=== PATIENT | male | born 1965 | race Caucasian/White ===

== ENCOUNTER 2019-04-23 04:28 | Emergency (ER) | payer OTHER ==
[~2019-04-23] VITALS: Ht 190.5 cm; Wt 93.0 kg
[~2019-04-23 04:28] MED LIST: ACYCLOVIR 800800 M1 PO; AKWA TEARS EYE15 ML OP; ASPIRIN325 OR; CEFTIN 250 MG250 MG PO; COREG6.25 MG PO; COZAAR 50 MG TA50 M1 PO; GLIPIZIDE-METF1 EAC1 PO; GLIPIZIDE-METF1 EAC2 PO; KEFLEX500 MG PO; LACTINEX CHEWA1 EACH PO; LANTUS100 UNIT/M SUBQ; LASIX 40 MG TAB40 M2 PO; LEVOBUNOLOL 0.5% OPHTHALMIC; LOW DOSE ASPIRI81 M1 PO; METFORMIN HCL500 MG PO; NORCO 5-325 TA1 EACH PO; NOVOLOG100 UNIT/1 SUBQ; ONGLYZA5 MG PO; PILOCARPINE 1%15 ML OPHTHALMIC; PREDNISONE 10 M10 M1 PO; PREDNISONE 5 MG5 M1 PO; PRINIVIL10 MG PO; PROAIR HFA8.5 GM INH; SPIRONOLACTONE25 M1 PO; TESSALON PERLE100 MG PO; TYLENOL325 MG PO; VYTORIN; VYTORIN 10-401 EACH PO; ZOCOR40 MG PO; [UNRECOGNIZED DRUG - OTHER] OR
[2019-04-23 04:29] VITALS: BP 142/69
[2019-04-23] MEDS ORDERED: GLIPIZIDE ER10 MG PO (05:12)
[2019-04-23] MEDS ORDERED: SPIRONOLACTONE25 MG PO (05:13)
[2019-04-23] MEDS ORDERED: TRAMADOL 50 MG50 MG PO (05:25)
[2019-04-23] MEDS ORDERED: NORFLEX100 MG PO ×2 (05:25→05:27)
[2019-04-23] MEDS ORDERED: IBUPROFEN 600600 M1 PO ×2 (05:25→05:27)
== END 2019-04-23 05:37 | disposition home or self-care (01) ==
LOC: ER 04:28
DX: S39.012A Strain of muscle, fascia and tendon of lower back, initial encounter (principal); E11.9 Type 2 diabetes mellitus without complications; Z98.890 Other specified postprocedural states; Z86.73 Personal history of transient ischemic attack (TIA), and cerebral infarction without residual deficits; Z96.641 Presence of right artificial hip joint; Z79.4 Long term (current) use of insulin; Z87.891 Personal history of nicotine dependence; X50.0XXA Overexertion from strenuous movement or load, initial encounter; Y92.89 Other specified places as the place of occurrence of the external cause; Y93.89 Activity, other specified; Y99.0 Civilian activity done for income or pay

== ENCOUNTER 2019-04-29 23:13 | Emergency (ER) | payer OTHER ==
[~2019-04-29] VITALS: Ht 190.5 cm; Wt 93.0 kg
[~2019-04-29 23:13] MED LIST changes: +GLIPIZIDE ER10 MG PO; +IBUPROFEN 600600 M1 PO; +NORFLEX100 MG PO; +SPIRONOLACTONE25 MG PO; +TRAMADOL 50 MG50 MG PO
[2019-04-30 00:48] LABS: ABSOLUTE NEUTROPHILS 5.4 thou/uL (1.4-8.2); BASOPHILS 0.9 % (0.0-2.0); EOSINOPHILS 2.6 % (0.0-3.0); HEMATOCRIT 38.9 % (42.0-52.0); HEMOGLOBIN 13.7 gm/dL (14.0-18.0); LYMPHOCYTES 18.2 % (24.0-44.0); MCH 30.6 pg (26.0-34.0); MCHC 35.2 g/dL (28.0-37.0); MCV 86.9 fL (80.0-100.0); MONOCYTES 6.2 % (1.0-8.0); PLATELET COUNT 195 thou/uL (150-400); POLYS 72.1 % (36.0-66.0); RBC 4.48 mil/uL (4.50-6.00); RDW 13.6 % (10.5-14.5); WBC 7.5 thou/uL (4.0-11.0)
[2019-04-30 00:57] LABS: CALCIUM 8.8 mg/dL (8.5-10.1); CREATININE 1.7 mg/dL (0.7-1.3)
[2019-04-30 01:03] LABS: ALBUMIN 3.7 g/dL (3.4-5.0); DIRECT BILIRUBIN 0.2 mg/dL (<0.1-0.3); TOTAL BILIRUBIN 0.8 mg/dL (<0.1-1.0); TOTAL PROTEIN 7.4 g/dL (6.4-8.2)
[2019-04-30 01:16] LABS: URINE BILIRUBIN NEGATIVE (Negative); URINE BLOOD NEGATIVE (Negative); URINE CLARITY CLEAR; URINE COLOR YELLOW; URINE GLUCOSE-RANDOM* NEGATIVE (Negative); URINE KETONES NEGATIVE (Negative); URINE LEUKOCYTES-REFLEX NEGATIVE (Negative); URINE NITRITE-REFLEX NEGATIVE (Negative); URINE PROTEIN (DIPSTICK) NEGATIVE (Negative); URINE SPECIFIC GRAVITY 1.015 (1.005-1.035)
[2019-04-30 02:59] VITALS: BP 151/70
== END 2019-04-30 03:00 | disposition home or self-care (01) ==
LOC: ER 23:13
PROVIDERS: Emergency Medicine
DX: N17.9 Acute kidney failure, unspecified (principal); E86.0 Dehydration; I95.1 Orthostatic hypotension; E11.9 Type 2 diabetes mellitus without complications; Z96.641 Presence of right artificial hip joint; Z87.891 Personal history of nicotine dependence

== ENCOUNTER → 2019-09-20 | Outpatient (CLI) | payer OTHER | LOC: SJCVCIMAG 12:04 | PROVIDERS: ATTEND Internal Medicine Cardiovascular Disease | DX: I27.20 Pulmonary hypertension, unspecified (principal); I25.10 Atherosclerotic heart disease of native coronary artery without angina pectoris; R07.9 Chest pain, unspecified; I42.8 Other cardiomyopathies; E11.8 Type 2 diabetes mellitus with unspecified complications; H91.90 Unspecified hearing loss, unspecified ear; I65.23 Occlusion and stenosis of bilateral carotid arteries; I10 Essential (primary) hypertension; Z79.4 Long term (current) use of insulin ==

== ENCOUNTER → 2019-11-02 | Outpatient (CLI) | payer OTHER | LOC: SJCVCIMAG 07:16 | DX: I25.10 Atherosclerotic heart disease of native coronary artery without angina pectoris (principal); I42.8 Other cardiomyopathies; E11.9 Type 2 diabetes mellitus without complications; Z79.899 Other long term (current) drug therapy; Z87.891 Personal history of nicotine dependence ==

== ENCOUNTER → 2019-11-20 | Outpatient (CLI) | payer OTHER ==
[~2019-11-20] VITALS: Ht 190.5 cm; Wt 90.7 kg
[2019-11-20 07:36] VITALS: BP 149/72
[2019-11-20 07:37] LABS: HEMATOCRIT 41.2 % (42.0-52.0); HEMOGLOBIN 14.2 gm/dL (14.0-18.0); MCH 30.3 pg (26.0-34.0); MCHC 34.4 g/dL (28.0-37.0); MCV 88.1 fL (80.0-100.0); RBC 4.68 mil/uL (4.50-6.00); RDW 13.6 % (10.5-14.5); WBC 7.5 thou/uL (4.0-11.0)
[2019-11-20 07:43] LABS: CALCIUM 9.4 mg/dL (8.5-10.1); CREATININE 1.5 mg/dL (0.7-1.3); POTASSIUM 4.2 mmol/L (3.5-5.1)
--- NOTE | 2019-11-20 07:58 | EKG ---
[facility] [place] [address] ELECTROCARDIOGRAM REPORT Name: JENNIFER MCKEON Room #: REG CL M.R.#: [id number] Admission: 11/20/19 Attend Phys: Miguel Link MD, Discharge: Date of : 63 Report #: [id number] THIS REPORT FOR: cc: Fidel Omalley MD, Kevin R. MD Lundgren,Des Guerrier MD [facility] ~ THIS REPORT FOR: //name// [facility] Test Date: 2019-11-20 Test Time: 07:26:43 Pat Name: JENNIFER MCKEON Department: Room: Gender: Material Planning Analyst: Ekaterina OLVERA : 1965 Requested By: Miguel Link Order Number: [id number] MD: Des Andrade Measurements Intervals [place] Rate: 79 P: 77 HI: 199 QRS: -23 QRSD: 97 T: 23 QT: 367 QTc: 421 Interpretive Statements Sinus rhythm Inferior infarct, old Probable anteroseptal infarct, old No previous ECGs available for comparison Electronically Signed On 11-20-2019 7:56:29 CDT by Des Andrade [email or web address] <ELECTRONICALLY SIGNED> By: Des Andrade MD, [facility] 11/20/19 0756 0726 0726 Des Andrade MD, [facility] /EPI
--- NOTE | 2019-11-20 17:19 | CATHLAB ---
[facility] [place] [address] INVASIVE PROCEDURE REPORT Name: JENNIFER MCKEON Room #: REG CANDI Cannon#: [id number] Admission: 11/20/19 Attend Phys: Miguel Link MD, Discharge: Date of : 63 Report #: [id number] THIS REPORT FOR: cc: Fidel Omalley MD, Kevin R. MD Mancuso, Gerald M. MD [facility] ~ APPROVED REPORT Study performed: 11/20/2019 08:05:57 Patient Details Patient Status: Out-Patient Room #: The patient is a 54 year-old male Event Personnel Miguel Link Health Safety Engineer, Doni Barrios RN, Alonso Castaneda RN RN, Kaycee Thompson Partnoy, Nancy RTR, CONSTITUTIONAL LAW PROFESSOR Monitor Procedures Performed Art Access - R femoral artery* Left Heart Cath w/or w/o Coronaries [id number] [facility] Aortogram Abdominal Peripheral Angio 036221 77529 Initial Mod Sed Same Phys/QHP Gr5y 430266 Hemostasis w/ Mynx Indication Positive stress test Procedure Narrative The Right Groin^ was infiltrated with 1% Lidocaine subcutaneous anesthesia. A PINNACLE 6FR Sheath #[id number] sheath was inserted into the RFA^. Coronary angiography was performed using coronary diagnostic catheters. The right coronary system was accessed and visualized with a JR4 catheter. The left coronary system was accessed and visualized with a JL4 catheter. The left ventricle was accessed and visualized with a PIGTAIL catheter. Left ventriculogram was performed in 30 degree projection. An aortogram of the abdominal aorta was performed. Closure device was deployed with a 6 Fr MYNXGRIP 6/7F #[id number]. The patient tolerated the procedure well and there were no complications associated with the procedure. There was no hematoma. Intraoperative Conscious Sedation Sedation start time: 08:34 Case end Time: [facility] [address] [place] [address] INVASIVE PROCEDURE REPORT Name: JENNIFER MCKEON Room #: [facility] Davis#: [id number] Admission: 11/20/19 Attend Phys: Miguel VizcarraMarshal Fariba, Discharge: Date of : 63 Report #: [id number] 09:02 Fentanyl 50 mcg Versed 2 mg Fluoro Time: 1.19 minutes Dose: DAP 2051.60 cGycm2 237 mGy Contrast Type and Amount: Visipaque 90 ml Hemodynamics The aortic pressure is 131/53 mmHg with a mean of 79 mmHg. The left ventricular pressure is 141/0 mmHg with a mean of mmHg. The left ventricular end diastolic pressure is 8 mmHg. Conclusion 1. Normal left ventricular size and systolic function EF 50 to 55%2 #2 abdominal aortogram with a mild aortic ectasia no significant aneurysm renal arteries appear to be patent. #3 left main mildly diseased and calcified giving rise to LAD and circumflex #4 LAD mild irregularities extends to the apex diffusely diseased distally. #5 there is a large ramus intermedius branch is widely patent there is a mid distal 40 to 50% irregularity and then a smaller vessel distal to this #6 circumflex OM otherwise mildly diseased moderate distribution. #7 dominant right the distal PDA is diffusely diseased and very small somewhat of a codominant system but there is no indication for intervention here. Recommendations and plan continue aggressive risk factor modification. Diffuse distal disease in the inferior wall and distal LAD. Treat medically. Will follow discharge protocol. <ELECTRONICALLY SIGNED> By: Miguel Link MD, FACC 11/20/191716 16 16 Miguel Link MD, FACC /INF
== END | disposition home or self-care (01) ==
LOC: CATH 06:46 → EDSTATUS 11:07 → CATH 12:20
PROVIDERS: Internal Medicine Cardiovascular Disease
DX: R94.39 Abnormal result of other cardiovascular function study (principal); I25.10 Atherosclerotic heart disease of native coronary artery without angina pectoris; I77.811 Abdominal aortic ectasia; I10 Essential (primary) hypertension; E11.9 Type 2 diabetes mellitus without complications; E78.5 Hyperlipidemia, unspecified; Z98.890 Other specified postprocedural states; Z79.899 Other long term (current) drug therapy; Z86.73 Personal history of transient ischemic attack (TIA), and cerebral infarction without residual deficits; Z87.891 Personal history of nicotine dependence

== ENCOUNTER → 2020-05-21 | Outpatient (CLI) | payer OTHER | LOC: LAB 10:14 | PROVIDERS: ATTEND Internal Medicine Gastroenterology | DX: Z01.812 Encounter for preprocedural laboratory examination (principal); Z20.828 Contact with and (suspected) exposure to other viral communicable diseases ==

== ENCOUNTER → 2020-05-26 | Outpatient (CLI) | payer OTHER ==
[~2020-05-26] VITALS: Ht 190.5 cm; Wt 83.9 kg
== END | disposition home or self-care (01) ==
LOC: GI 05-12 15:04
PROVIDERS: ATTEND Internal Medicine Gastroenterology
DX: Z12.11 Encounter for screening for malignant neoplasm of colon (principal); Z80.0 Family history of malignant neoplasm of digestive organs; K57.30 Diverticulosis of large intestine without perforation or abscess without bleeding; I11.0 Hypertensive heart disease with heart failure; I50.9 Heart failure, unspecified; E11.9 Type 2 diabetes mellitus without complications; Z98.890 Other specified postprocedural states; Z79.899 Other long term (current) drug therapy; Z79.4 Long term (current) use of insulin; Z96.641 Presence of right artificial hip joint; Z87.891 Personal history of nicotine dependence
CPT/HCPCS: 62110; 62900

== ENCOUNTER 2020-09-06 15:14 | Inpatient (IN) | payer OTHER ==
[~2020-09-06] VITALS: Ht 190.5 cm; Wt 77.1 kg
--- NOTE | ~2020-09-06 | HC ---
[facility] [place] [address] CONSULTATION Name: JENNIFER MCKEON Room #: 208-P ADM IN M.R.#: [id number] Admission: 09/06/20 Attend Phys: Shine Meng MD Discharge: Date of : 63 Report #: [id number] THIS REPORT FOR: cc: Fidel Omalley MD, Kevin R. MD Park, Jin S. MD ~ DATE OF SERVICE: 09/07/2020 CARDIOLOGY CONSULTATION INDICATION: Syncope. HISTORY OF PRESENT ILLNESS: This is a 55-year-old male with a history of nonobstructive CAD, prior cardiomyopathy, congenital deafness, diabetes mellitus, CVA, hypertension and hyperlipidemia, presenting with an episode of syncope. The patient passed out at home, unclear of the events. He woke up with his dog on top of him. In the ER, he did complain of chest discomfort, nonradiating. Difficult to obtain details due to his deafness. The pain may be exacerbated by deep inspiration. The ECG does not show any acute ST segment changes and the initial troponin level is negative. He had a cardiac catheterization in 2019 that revealed moderate lesions. There is no history of fever, chills, or nausea. PAST MEDICAL HISTORY: History of cardiomyopathy in 2014, recent studies revealed an improved LV systolic function. Cardiac catheterization in 2019 revealed moderately CAD. Prior history of CVA. Diabetes mellitus, deafness, hypertension, hypercholesterolemia. ALLERGIES: None. MEDICATIONS: At home include losartan 50 mg daily, insulin, spironolactone, Invokana, aspirin, Coreg, and furosemide. SOCIAL HISTORY: Denies tobacco use. FAMILY HISTORY: Negative for premature CAD. REVIEW OF SYSTEMS: A full 10-point of review of systems performed. Only the pertinent positives and negatives are described in the HPI. PHYSICAL EXAMINATION: VITAL SIGNS: 120/60, heart rate is 60 beats per minute. GENERAL APPEARANCE: This is a well-developed, well-nourished male in no acute distress. HEENT: Normocephalic, atraumatic. Oral mucosa moist. [facility] [address] [place] [address] CONSULTATION Name: JENNIFER MCKEON Room #: 208-P [facility] IN M.R.#: [id number] Admission: 09/06/20 Attend Phys: Shine Meng MD Discharge: Date of : 63 Report #: [id number] NECK: Supple. LUNGS: Clear to auscultation. CARDIAC: Regular rate and rhythm, S1, S2 positive. ABDOMEN: Soft, nontender. EXTREMITIES: No cyanosis, no edema. CT of the head shows no intracranial abnormalities. Chest x-ray is unremarkable. Carotid ultrasound reveals chmg-nc-raxngwdi bilateral plaquing. LABORATORY VALUES: Creatinine is 1.5, down to 1.2. Troponin is negative x3. ASSESSMENT AND PLAN: 1. Syncope, etiology unclear. Unable to obtain a detailed history as he cannot recall any events leading up to the event. Carotid ultrasound and CT of the head are unremarkable. Continue with telemetry to assess for arrhythmias. We will need an echo and an ischemic evaluation. 2. Chest pain syndrome, ECG does not show any acute ST segment changes. Three sets of troponin levels are negative. We will proceed with noninvasive stress testing. 3. Hypertension, continue with medications. 4. Diabetes mellitus, continue with insulin and fingersticks. 5. Cardiomyopathy, repeat echocardiogram. By: 1011 1021 Ellis Palomino MD /nt
[2020-09-06 15:14] VITALS: BP 110/65
[2020-09-06 15:56] LABS: ABSOLUTE NEUTROPHILS 3.7 thou/uL (1.4-8.2); EOSINOPHILS 1.9 % (0.0-3.0); HEMATOCRIT 41.5 % (42.0-52.0); HEMOGLOBIN 14.4 gm/dL (14.0-18.0); LYMPHOCYTES 25.4 % (24.0-44.0); MCH 30.8 pg (26.0-34.0); MCHC 34.7 g/dL (28.0-37.0); MCV 88.9 fL (80.0-100.0); MONOCYTES 6.9 % (1.0-8.0); PLATELET COUNT 180 thou/uL (150-400); POLYS 64.8 % (36.0-66.0); RBC 4.67 mil/uL (4.50-6.00); RDW 13.1 % (10.5-14.5); WBC 5.6 thou/uL (4.0-11.0)
--- NOTE | 2020-09-06 16:03 | NUR ---
VIDEO FERTILIZER LOADER IN USE IN ROOM, PT IS INSISITING ON A LIVE FERTILIZER LOADER, STEEL CHECKER NOTIFIED OF THIS REQUEST. PT IS USING THE VIDEO FERTILIZER LOADER CURRENTLY WITHOUT DIFFICULTIES
[2020-09-06 16:04] LABS: ANION GAP 4 mmol/L (7-16); BUN 28 mg/dL (7-18); CALCIUM 9.2 mg/dL (8.5-10.1); CHLORIDE 100 mmol/L (98-107); CO2 32 mmol/L (21-32); CREATININE 1.5 mg/dL (0.7-1.3); GLUCOSE 238 mg/dL (74-106); POTASSIUM 3.9 mmol/L (3.5-5.1); SODIUM 136 mmol/L (136-145)
[2020-09-06 16:13] LABS: TROPONIN-I <0.06 ng/mL (<0.06)
[2020-09-06] MEDS ORDERED: INVOKANA100 MG PO (16:15)
[2020-09-06 18:39] VITALS: BP 116/66
[2020-09-06 19:49] VITALS: BP 139/60
[2020-09-06 20:18] VITALS: BP 110/58
[2020-09-06 23:48] VITALS: BP 134/67
--- NOTE | 2020-09-07 02:56 | NUR ---
ASSESSMENT: PT REMAIN ALERT AND ORIENT TIMES FOUR. THIS RN WAS ABLE TO "SIGN" WITH THE PT AND HE WAS VERY HAPPY AND APPRECIATED THIS RN'S ABILITY TO DO SO. NO C/O ANYTHING. VSS, AFEBRILE. UP AD NASEEM WITH STEADY GATE. ORDERS REVIEWED. SR PER MONITOR. DENIES DIZZINESS WITH AMBULATIONS. PT STATE THAT HIS LEFT FOOT WAS CRAMPING. POTASSIUM WAS REPLACED IN ED FOR LOW POTASSIUM LEVEL. PT ENCOURAGED TO DRINK LOTS OF WATER. ECHO AND US CAROTIDS ARE PENDING. TOLERATING PO INTAKE. WILL CONTINUE TO MONITOR.
[2020-09-07 03:38] LABS: HEMATOCRIT 38.7 % (42.0-52.0); HEMOGLOBIN 13.3 gm/dL (14.0-18.0); MCH 30.5 pg (26.0-34.0); MCHC 34.4 g/dL (28.0-37.0); MCV 88.7 fL (80.0-100.0); RBC 4.36 mil/uL (4.50-6.00); WBC 5.4 thou/uL (4.0-11.0)
[2020-09-07 03:40] VITALS: BP 112/53
[2020-09-07 03:47] LABS: CALCIUM 8.9 mg/dL (8.5-10.1); CREATININE 1.2 mg/dL (0.7-1.3); POTASSIUM 4.1 mmol/L (3.5-5.1)
[2020-09-07 06:33] LABS: ALBUMIN 3.5 g/dL (3.4-5.0); TOTAL PROTEIN 6.6 g/dL (6.4-8.2); TROPONIN-I <0.06 ng/mL (<0.06)
[2020-09-07 07:53] VITALS: BP 126/67
[2020-09-07 11:41] VITALS: BP 129/69
--- NOTE | 2020-09-07 11:49 | NUR ---
AAOX4. DEAF. ABLE TO MAKE NEEDS KNOWN. TABLET OBTAINED FROM [employer] FOR COMMUNICATION. DENIES CP, SOA. USES CALL LIGHT APPROPRIATELY. SR PER TELE.
[2020-09-07 15:14] VITALS: BP 103/57
[2020-09-07 20:24] VITALS: BP 122/52
[2020-09-08 04:55] VITALS: BP 124/67
--- NOTE | 2020-09-08 07:37 | EKG ---
[address] [address] ELECTROCARDIOGRAM REPORT Name: JENNIFER MCKEON Room #: 208-P ADM IN M.R.#: [id number] Admission: 09/06/20 Attend Phys: Shine Meng MD Discharge: Date of : 63 Report #: [id number] [facility] ED Test Date: 2020-09-06 Test Time: 15:20:59 Pat Name: JENNIFER MCKEON Department: Room: 208 Gender: M Station Detective: suri : 1965 Requested By: Omar Bustillo Order Number: [id number] MD: Alcon Varela Measurements Intervals [place] Rate: 84 P: 52 [place]: 195 QRS: -11 QRSD: 93 T: 63 QT: 361 QTc: 427 Interpretive Statements Sinus rhythm Low voltage, extremity leads Borderline ST elevation, anterior leads Compared to ECG 11/20/2019 07:26:43 Low QRS voltage now present ST (T wave) deviation now present Myocardial infarct finding no longer present Electronically Signed On 09-08-2020 7:36:56 CHOPPING MACHINE OPERATOR by Alcon Varela [email or web address] <ELECTRONICALLY SIGNED> By: Alcon Varela MD, FACC 09/08/20 0736 1520 1520 Alcon Varela MD, [facility] /EPI
[2020-09-08 08:53] VITALS: BP 122/67
--- NOTE | 2020-09-08 09:40 | NUR ---
ASSUMED CARE FOR PATIENT AT 0700. PT INFORMED VIA PEN AND PAPER (PATIENTS PERFERRED CHOICE). ASSESSMENT PERFORMED. PT EDUCATED ON TODAYS PLAN OF CARE. VSS. WILL CONTINUE TO MONITOR.
--- NOTE | 2020-09-08 10:00 | 2DMMODE ---
[facility] [place] [address] 2 D/M-MODE ECHOCARDIOGRAM Name: JENNIFER MCKEON Room #: 208-P ADM IN M.R.#: [id number] Admission: 09/06/20 Attend Phys: Shine Meng MD Discharge: Date of : 63 Report #: [id number] THIS REPORT FOR: cc: Fidel Omalley MD, Kevin R. MD Park, Jin S. MD ~ APPROVED REPORT Study performed: 09/08/2020 09:11:07 EXAM: Comprehensive 2D, Doppler, and color-flow Echocardiogram Patient Location: Bedside Room #: 208 Status: routine BSA: 2.05 HR: 67 bpm BP: 124/67 mmHg Rhythm: NSR Other Information Study Quality: Good Indications Diabetes CAD Syncope Cardiomyopathy Hypertension/HDD 2D Dimensions RVDd: 21.04 mm IVSd: 10.03 (7-11mm) LVOT Diam: 24.35 (18-24mm) LVDd: 55.56 mm PWd: 9.51 (7-11mm) LVDs: 47.19 (25-40mm) Aortic Root: 32.50 mm IVC: 18.00 mm Volumes Left Atrial Volume (Systole) Single Plane 4CH: 36.49 mL Single Plane 2CH: 44.80 mL Aortic Valve AoV Peak James.: 1.20 m/s AO Peak Gr.: 5.78 mmHg LVOT Max P.01 mmHg [facility] [address] [place] [address] 2 D/M-MODE ECHOCARDIOGRAM Name: JENNIFER MCKEON Room #: 208-P [facility] IN M.R.#: [id number] Admission: 09/06/20 Attend Phys: Shine Meng, Discharge: Date of : 63 Report #: [id number] LVOT Max V: 1.00 m/s ELIUD Vmax: 3.88 cm2 Mitral Valve E/A Ratio: 0.9 MV Decel. Time: 218.32 ms MV E Max James.: 0.73 m/s MV A James.: 0.80 m/s MV PHT: 63.31 ms IVRT: 83.04 ms Pulmonary Valve PV Peak James.: 1.00 m/s PV Peak Gr.: 3.98 mmHg Pulmonary Vein P Vein S: 0.44 m/s P Vein D: 0.42 m/s P Vein S/D Ratio: 1.05 Tricuspid Valve TR Peak James.: 2.48 m/s TR Peak Gr.: 24.55 mmHg PA Pressure: 30.00 mmHg Left Ventricle The left ventricle is normal size. There is normal LV segmental wall motion. There is normal left ventricular wall thickness. The left ventricular systolic function is normal. The left ventricular ejection fraction is within the normal range. LVEF is 50-55%. Grade I - abnormal relaxation pattern. Right Ventricle The right ventricle is normal size. The right ventricular systolic function is normal. Atria Left atrium is at the upper limits of normal. Right atrium is at the upper limits of normal. Aortic Valve The aortic valve is normal in structure. No aortic regurgitation is present. There is no aortic valvular stenosis. Mitral Valve The mitral valve is normal in structure. There is no mitral valve regurgitation noted. No evidence of mitral valve stenosis. [facility] [address] [place] [address] 2 D/M-MODE ECHOCARDIOGRAM Name: JENNIFER MCKEON KALI Room #: 208-P ADM IN M.R.#: [id number] Admission: 09/06/20 Attend Phys: Shine Meng, Discharge: Date of : 63 Report #: [id number] Tricuspid Valve The tricuspid valve is normal in structure. There is trace tricuspid regurgitation. Estimated PAP 30 mmHg. Pulmonic Valve The pulmonary valve is normal in structure. There is no pulmonic valvular regurgitation. Great Vessels The aortic root is normal in size. IVC is normal in size and collapses >50% with inspiration. Pericardium There is no pericardial effusion. <Conclusion> The left ventricle is normal size. There is normal left ventricular wall thickness. The left ventricular systolic function is normal. Grade I - abnormal relaxation pattern. The right ventricle is normal size. Left atrium is at the upper limits of normal. The aortic valve is normal in structure. There is no mitral valve regurgitation noted. There is trace tricuspid regurgitation. Estimated PAP 30 mmHg. <ELECTRONICALLY SIGNED> By: Ellis Palomino MD 09/08/20958 8 8 Ellis Palomino MD /INF
--- NOTE | 2020-09-08 11:50 | NUR ---
PT GOING TO [facility] FOR STRESS TEST. PT WILL BE OFF THE UNIT.
[2020-09-08 12:00] VITALS: BP 140/58
--- NOTE | 2020-09-08 14:45 | NUR ---
PT HAS RETURNED FROM NUCLEAR MEDICINE. PT DENIES PAIN. PT EATING A LATE LUNCH. PT IS READY TO GO HOME IF CLEARED BY MANAGER COSTING.
[2020-09-08 16:40] VITALS: BP 139/67
[2020-09-08 20:30] VITALS: BP 105/52
[2020-09-09 04:49] VITALS: BP 94/56
--- NOTE | 2020-09-09 05:44 | NUR ---
ASSUMED CARE AT CHANGE OF SHIFT; AOX4/HEARING IMPAIRED/COMMUNICATES WITH SIGN LANGUAGE AND PEN/PAPER; VSS/ASSESSMENTS CHARTED; NO SYNCOPAL EVENTS; NO C/O PAIN; NO C/O OF HEART PALPITATIONS; SR/1D ON THE MONITOR; SLEPT QUIETLY THROUGHOUT THE NOC; WILL CONTINUE TO MONITOR AND FOLLOW POC.
[2020-09-09] MEDS ORDERED: COZAAR 25 MG TA25 M1 PO (07:43)
[2020-09-09 08:00] VITALS: BP 112/61; BP 12/67
[2020-09-09 10:44] VITALS: BP 122/67
--- NOTE | 2020-09-09 11:42 | NUR ---
RECEIVED PT'S CARE AT 1045; GARDENIA MISHRABONE COOKING OPERATOR TO ICU; D/C ORDERS PERFORM; D/C PAPERS PROVIDED WELL EDUCATION;
== END 2020-09-09 12:14 | disposition home or self-care (01) | DRG 640 ==
LOC: ER 15:14 → EROBS 18:57 → 2N 18:57
PROVIDERS: Nurse Practitioner; ADMIT Internal Medicine; ATTEND Internal Medicine
DX: E86.0 Dehydration (principal); N17.0 Acute kidney failure with tubular necrosis; I42.8 Other cardiomyopathies; R55 Syncope and collapse; R07.9 Chest pain, unspecified; R00.2 Palpitations; I25.10 Atherosclerotic heart disease of native coronary artery without angina pectoris; E78.5 Hyperlipidemia, unspecified; E78.00 Pure hypercholesterolemia, unspecified; N18.30 Chronic kidney disease, stage 3 unspecified; I12.9 Hypertensive chronic kidney disease with stage 1 through stage 4 chronic kidney disease, or unspecified chronic kidney disease; E11.22 Type 2 diabetes mellitus with diabetic chronic kidney disease; I07.1 Rheumatic tricuspid insufficiency; I95.9 Hypotension, unspecified; Z96.641 Presence of right artificial hip joint; Z86.73 Personal history of transient ischemic attack (TIA), and cerebral infarction without residual deficits; Z79.4 Long term (current) use of insulin; Z79.899 Other long term (current) drug therapy; Z79.82 Long term (current) use of aspirin; Z87.891 Personal history of nicotine dependence
CPT/HCPCS: 10081

== ENCOUNTER → 2021-01-23 | Outpatient (CLI) | payer OTHER ==
[~2021-01-23] MED LIST changes: +COZAAR 25 MG TA25 M1 PO; +INVOKANA100 MG PO
== END ==
LOC: SJCVC 10:24
PROVIDERS: ATTEND Internal Medicine Cardiovascular Disease
DX: R94.31 Abnormal electrocardiogram [ECG] [EKG] (principal); I25.10 Atherosclerotic heart disease of native coronary artery without angina pectoris; I10 Essential (primary) hypertension; E78.00 Pure hypercholesterolemia, unspecified; I42.9 Cardiomyopathy, unspecified; E11.8 Type 2 diabetes mellitus with unspecified complications; I65.23 Occlusion and stenosis of bilateral carotid arteries; H91.90 Unspecified hearing loss, unspecified ear; F12.90 Cannabis use, unspecified, uncomplicated; Z79.4 Long term (current) use of insulin; Z72.89 Other problems related to lifestyle; Z79.82 Long term (current) use of aspirin; Z79.899 Other long term (current) drug therapy